=== PATIENT | male | born 1985 | race Caucasian/White ===

== ENCOUNTER 2020-10-06 18:19 | Emergency (ER) | payer SELFPAY ==
--- NOTE | 2020-10-06 18:56 | EDM.PDOC ---
ED HPI GENERAL MEDICAL PROBLEM - General Chief Complaint: ENT Problem Stated Complaint: TOOTH PAIN Time Seen by Provider: 10/06/20 18:35 Source of Information: Reports: Patient History Limitations: Reports: No Limitations - History of Present Illness INITIAL COMMENTS - FREE TEXT/NARRATIVE: 35-year-old male presents to emergency department with complaints of dental pain on the bottom left side. Patient states that the dental pain on the last tooth on the bottom left side started about 2 weeks ago. He states that he has intermittent pain with this tooth with pain into his jaw and into his ear. States that today he was eating corn nuts and felt a crack in his bottom left fourth tooth and then had severe pain that has remained since. Patient does have a chip out of the base of that left tooth right at the gumline. Left Tooth/Teeth Pain Score (Numeric/FACES): 10 - Related Data Allergies Allergy/AdvReac Type Severity Reaction Status Date / Time No Known Allergies Allergy Verified 10/06/20 18:28 Home Meds: Home Meds Clindamycin HCl 300 mg PO QID #28 capsule 10/06/20 [Rx] oxyCODONE HCl/Acetaminophen [Percocet 5-325 mg Tablet] 1 each PO Q6H PRN #10 tablet 10/06/20 [Rx] Past Medical History - Past Health History Medical/Surgical History: Denies Medical/Surgical History Social & Family History - Family History Family Medical History: No Pertinent Family History - Tobacco Use Tobacco Use Status *Q: Current Some Day Tobacco User Years of Tobacco use: 10 Packs/Tins Daily: 0.2 - Caffeine Use Caffeine Use: Reports: Coffee, Energy Drinks, Soda, Tea - Recreational Drug Use Recreational Drug Use: No ED ROS ENT - Review of Systems Review Of Systems: Comprehensive ROS is negative, except as noted in HPI. ED EXAM, ENT - Physical Exam Exam: See Below Exam Limited By: No Limitations General Appearance: Alert, WD/WN, Moderate Distress Mouth/Throat: Dental Abcess (Tooth #17), Dental Pain (Tooth #21), Dental Tenderness (17.) Neurological: Alert, Oriented, Normal Cognition Skin: Warm, Dry, Intact, Normal Color, No Rash Lymphatic: No Adenopathy Course - Vital Signs Text/Narrative:: 35-year-old male presents to the emergency department complaints of dental pain to tooth #17 that has been ongoing for the past couple of of weeks and he states that he has intermittent severe bouts of pain. However, his jaw has now become painful and pain is radiating into his ear. He states that today he was eating corn nuts and when he bit down he felt his tooth crack on the bottom left tooth #21. He states that since then he has had severe shooting pain that feels like a bee sting into his gums. Upon assessment patient does have a small chip missing from that tooth at the base. Patient also does have dental caries noted to the majority of his teeth. Along the gumline of tooth #17 he has erythema and edema noted. Patient states he is here from [place] working and has looked into flying home tomorrow to have the tooth repaired however this will cost him $1200. I gave him a list of local dentists in town in a couple options in [place] as well. Prescription for clindamycin has been sent to his pharmacy as well as a prescription for Percocet. Last Recorded V/S: Last Vital Signs Temp 98.8 F 10/06/20 18:24 Pulse 65 10/06/20 18:24 Resp 15 10/06/20 18:24 BP 147/63 H 10/06/20 18:24 Pulse Ox 96 10/06/20 18:24 Departure - Departure Time of Disposition: 18:49 Disposition: Home, Self-Care 01 Condition: Good Clinical Impression: Dental abscess, Dental caries - Discharge Information Prescriptions: Clindamycin HCl 300 mg PO QID #28 capsule oxyCODONE HCl/Acetaminophen [Percocet 5-325 mg Tablet] 1 each PO Q6H PRN #10 tablet PRN Reason: Pain (Moderate 4-6) Instructions: Dental Abscess, [id number] Referrals: PCP,None [Primary Care Provider] - Forms: ED Department Discharge Additional Instructions: You were seen in the ED tonight with complaints of dental pain to your last tooth on the bottom left and a chipped and broken 4th tooth on the bottom left. You do have an infection on the last tooth that requires antibiotics. I have sent a prescription for antibiotics called clindamyacin and pain medication called Percocet home with you. He will need to take the antibiotic 1 tablet 4 times daily for 7 days be sure to complete this course of antibiotics until gone. You will take. 1 Percocet every 6 hours as needed for severe pain. Keep in mind that this is a narcotic medication and that it can cause sedation and you should not be driving or operating heavy machinery while taking this medication. You should also avoid any alcoholic beverages while taking this medication. You can also try clove oil on the affected teeth. This has been shown to dull and numb the nerve pain associated with it. Recommend that you follow-up with a dentist as soon as possible. I have given you a list of local dentists as well as a couple located in [place]. It may take 48 to 72 hours for the antibiotics to take full effect. Also recommend that you take ibuprofen 600 mg every 6-8 hours until the antibiotic kicks in.. Sepsis Event Note (ED) - Evaluation Sepsis Screening Result: No Definite Risk - Focused Exam Vital Signs: Vital Signs Temp Pulse Resp BP Pulse Ox 10/06/20 18:24 98.8 F 65 15 147/63 H 96
== END 2020-10-06 19:13 | disposition home or self-care (01) ==
LOC: JD.ED 18:19
DX: K04.7 Periapical abscess without sinus (principal); K02.9 Dental caries, unspecified; Z72.0 Tobacco use
CPT/HCPCS: 99282; 99283